=== PATIENT | male | born 1935 | race Caucasian/White ===

== ENCOUNTER 2017-11-04 14:54 | Emergency (ER) | payer MEDICAID ==
[~2017-11-04] VITALS: Ht 172.7 cm; Wt 86.2 kg
[2017-11-04 14:58] VITALS: Ht 172.7 cm; Wt 86.2 kg
[2017-11-04 16:57] LABS: BASOPHIL % 0.3 % (0-2); PLATELET COUNT 148 x10^3mcL (130-400); RED CELL DISTRIBUTION WIDTH 13.7 % (11.5-14.5)
[2017-11-04 17:01] LABS: CALCIUM 8.3 mg/dL (8.5-10.1); CARBON DIOXIDE 27.1 mmol/L (21-32); CHLORIDE SERUM 101 mmol/L (98-107); GLUCOSE SERUM 108 mg/dL (74-106); POTASSIUM SERUM 3.5 mmol/L (3.5-5.1); SODIUM SERUM 135 mmol/L (136-145)
[2017-11-04 17:06] LABS: ALBUMIN 3.6 g/dL (3.4-5.0); ALKALINE PHOSPHATASE 84 U/L (46-116); ALT/SGPT 50 U/L (16-63); AMYLASE 38 U/L (25-115); AST/SGOT 51 U/L (15-37); BILIRUBIN TOTAL 0.8 mg/dL (0.20-1.00); LIPASE 165 IU/L (73-393); TOTAL PROTEIN, SERUM 7.3 g/dL (6.4-8.2)
[2017-11-04 17:58] VITALS: BP 148/77
== END 2017-11-04 17:58 | disposition home or self-care (01) ==
LOC: ED 14:54
PROVIDERS: Emergency Medicine
DX: K52.9 Noninfective gastroenteritis and colitis, unspecified (principal); J45.909 Unspecified asthma, uncomplicated; I10 Essential (primary) hypertension; E78.00 Pure hypercholesterolemia, unspecified; I21.9 Acute myocardial infarction, unspecified
CPT/HCPCS: J7030

== ENCOUNTER 2020-04-19 22:22 | Emergency (ER) | payer MEDICAID ==
[~2020-04-19] VITALS: Ht 170.2 cm; Wt 90.7 kg
[2020-04-19 22:34] VITALS: Ht 170.2 cm; Wt 90.7 kg
[2020-04-20 00:02] LABS: RED CELL DISTRIBUTION WIDTH 14.1 % (12.1-16.2)
[2020-04-20 00:06] LABS: BASOPHIL % 0.4 % (0.2-1.5); PLATELET COUNT 209 x10^3mcL (152-348)
[2020-04-20 00:18] LABS: rbc morphology (normal/abnorm) NORMAL (NORMAL)
[2020-04-20 01:00] VITALS: BP 146/71
== END 2020-04-20 01:00 | disposition home or self-care (01) ==
LOC: ED 22:22
PROVIDERS: Student in an Organized Health Care Education/Training Program
DX: K06.8 Other specified disorders of gingiva and edentulous alveolar ridge (principal)